=== PATIENT | female | born 1955 | race African-American/Black ===

== ENCOUNTER → 2016-11-23 | Outpatient (CLI) | payer OTHER ==
[~2016-11-23] MED LIST: ACID REDUCER150 MG PO; ALDACTONE100 MG PO; ARTHRITIS PAI42.5 GM TOP; ASPIRIN81 M2 PO; BACTRIM DS TAB1 EACH PO; BANOPHEN25 M1 PO; BUMEX1 MG PO; COREG PO; FLONASE ALLERG9.9 ML; IMDUR; IRON325 MG; LIPITOR PO; LOTRIMIN 1% CR30 GM EXT; NEURONTIN300 MG PO; NIFEDIPINE ER90 M3 PO; NITROGLYCERIN0.4 MG SL; OMEPRAZOLE40 M1 PO; PENTOXIFYLINE100 GM PO; PENTOXIFYLLINE; PERCOCET 7.5-31 EACH PO; PHENERGAN PO; SODIUM BICARBO650 MG PO; VITAMIN D250000 UNIT PO; VITAMIN D350000 UNIT PO; ZESTRIL2.5 M1 PO
== END | disposition home or self-care (01) ==
LOC: CLAB 15:42
DX: N39.0 Urinary tract infection, site not specified (principal)
CPT/HCPCS: 87086

== ENCOUNTER → 2017-01-29 | Outpatient (CLI) | payer OTHER ==
--- NOTE | ~2017-01-29 | EKG ---
PATIENT: LALA PRAKASH UNIT #: [id number] Ventricular Rate: 97 BPM Atrial Rate: 97 BPM P-R Interval: 196 ms QRS Duration: 90 ms Q-T Interval: 562 ms QTC Calculation(Bezet): 713 ms P [place]: 64 degrees Calculated R [place]: 23 degrees Calculated T [place]: 50 degrees Diagnosis Line: Normal sinus rhythm Diagnosis Line: Prolonged QT Diagnosis Line: Abnormal ECG Diagnosis Line: No previous ECGs available Diagnosis Line: Confirmed by JEANETTE SCHROEDER MD ([id number]) on Diagnosis Line: 02/01/2017 10:47:23 AM INTERPRETING MD: ALEXANDRE ANDRADE
[2017-01-29 13:04] LABS: HEMATOCRIT 41.2 % (35.0-45.0); HEMOGLOBIN 13.8 gm/dL (12.0-16.0); MEAN CELL VOLUME 87.3 FL (83-96); MEAN CORPUSCULAR HEMOGLOBIN 29.1 PG (28-34); MEAN CORPUSCULAR HGB CONC 33.4 g/dL (30-36); MEAN PLATELET VOLUME 9.2 FL (6.5-11.5); RED BLOOD COUNT 4.72 X10e (3.90-5.30); RED CELL DISTRIBUTION WIDTH 15.4 % (11.0-15.5); WHITE BLOOD COUNT 4.8 X10e3 (4.0-10.5)
[2017-01-29 13:06] LABS: URINE APPEARANCE SL HAZY; URINE BLOOD NEG (NEG); URINE COLOR YELLOW; URINE GLUCOSE NORM (NORM); URINE KETONE NEG (NEG); URINE LEUKOCYTE ESTERASE 1+ (NEG); URINE NITRATE NEG (NEG); URINE PROTEIN 1+ (NEG); URINE UROBILINOGEN 4 MG/DL (NORM)
[2017-01-29 13:20] LABS: URINE BILIRUBIN NEG (NEG); URINE SOURCE CLEAN CATCH
[2017-01-29 13:21] LABS: CULTURE INDICATED? YES; URBCS1 AUWI 0-2 /[HPF] (0-2); URINE BACTERIA AUWI 2+ (NEGATIVE)
[2017-01-29 13:22] LABS: URINE SQUAMOUS EPITHELIAL CELL MODERATE /[HPF]
[2017-01-29 13:50] LABS: ALBUMIN SERUM 3.7 g/dL (3.5-5.0); BILIRUBIN,TOTAL 0.4 mg/dL (0.2-2.0); BUN/CREATININE RATIO 7.5; CALCIUM SERUM 9.1 mg/dL (8.4-10.2); CREATININE SERUM 1.2 mg/dL (0.6-1.4); GLOM FILT RATE Estimated 56.9 mL/min (>60); POTASSIUM 3.2 mmol/L (3.5-5.1)
== END | disposition home or self-care (01) ==
LOC: CAMB 12:00
PROVIDERS: Orthopaedic Surgery
DX: Z01.818 Encounter for other preprocedural examination (principal); M17.12 Unilateral primary osteoarthritis, left knee
CPT/HCPCS: 36415; 80053; 81003; 85027; 87070; 87086; 93005